=== PATIENT | female | born 1995 | race Caucasian/White ===

== ENCOUNTER 2021-12-20 08:39 | Inpatient (IN) | payer BC ==
[2021-12-21] MEDS ORDERED: Promethazine HCl 25 MG/ML VIAL IM PRN (04:49)
[2021-12-21] MEDS ORDERED: Acetaminophen 500 MG TAB PO PRN (04:49)
[2021-12-21] MEDS ORDERED: HYDROcodone/Acetaminophen 5/325 mg Tablet PO PRN ×2 (04:49)
[2021-12-21] MEDS ORDERED: Ibuprofen 800 MG TAB PO PRN (04:49)
[2021-12-21] MEDS ORDERED: Methylergonovine 0.2 MG/ML VIAL IM PRN (04:49)
[2021-12-21] MEDS ORDERED: Lidocaine 1% (PF) 30 ML VIAL SC PRN (04:49)
[2021-12-21] MEDS ORDERED: Misoprostol 200 MCG TAB PR PRN (04:49)
[2021-12-21] MEDS ORDERED: Ondansetron PF 4 MG/2 ML Vial IVP PRN (04:49)
[2021-12-21] MEDS ORDERED: Diphenoxylate HCl/Atropine Tablet PO PRN (04:49)
[2021-12-21] MEDS ORDERED: hydrALAZINE 20 MG/ML VIAL SLOW IVP PRN (04:49)
[2021-12-21 04:50] VITALS: BMI 39.0
[2021-12-21] MEDS ORDERED: Misoprostol 100 MCG TAB ONE (05:09)
[2021-12-21] MEDS ORDERED: Lactated Ringer's 1,000 ML IV SCH (05:15)
[2021-12-21] MEDS ORDERED: NS w/ Oxytocin 30 units 500 ML IV SCH ×2 (05:15)
[2021-12-21] MEDS: Misoprostol 100 MCG TAB VAG SCH ×3 (05:17→12:33)
[2021-12-21 05:33] LABS: Hemoglobin 10.3 g/dL (12.0-15.5); Mean Corpuscular HGB CONC 33.4 g/dL (32.0-36.0); Mean Corpuscular Hemoglobin 29.7 pg (27.0-33.0); Mean Corpuscular Volume 88.8 fl (81.6-98.3); Mean Platelet Volume 9.2 fl (7.4-10.4); Platelet Count 280 10x3/uL (150-450); RBC Distribution Width 14.6 % (11.5-14.5); Red Blood Cell (RBC) Count 3.47 10x6/uL (3.90-5.03); White Blood Cell (WBC) Count 11.8 10x3/uL (3.5-10.5)
[2021-12-21 06:10] LABS: Syphilis Antibody Nonreactive (Nonreactive); Syphilis Antibody Index 0.16 S/CO (<1.00 Non-Reactive)
[2021-12-21 06:11] LABS: Hep B Surf Ag Non-Reactive S/CO (NonReactive)
[2021-12-21 06:23] LABS: HBSAg Index 0.21 S/CO (0-0.99)
[2021-12-22] MEDS ORDERED: Lidocaine 1% (PF) 30 ML VIAL ONE (18:50)
[2021-12-22] MEDS ORDERED: Methylergonovine 0.2 MG/ML VIAL ONE (19:29)
[2021-12-22] MEDS: Butorphanol Tartrate 1 MG/ML VIAL SLOW IVP PRN ×2 (19:36→19:37)
[2021-12-22] MEDS ORDERED: Benzocaine-Menthol 82.5 ML CAN TOP PRN (21:31)
[2021-12-22] MEDS ORDERED: hydrALAZINE 20 MG/ML VIAL SLOW IVP PRN (21:31)
[2021-12-22] MEDS ORDERED: Lanolin Ointment 7 GM TUBE TOP PRN (21:31)
[2021-12-22] MEDS ORDERED: Methylergonovine 0.2 MG/ML VIAL IM PRN (21:31)
[2021-12-22] MEDS ORDERED: Ondansetron PF 4 MG/2 ML Vial IVP PRN (21:31)
[2021-12-22] MEDS ORDERED: Bisacodyl 10 MG SUPP PR PRN (21:31)
[2021-12-22] MEDS ORDERED: Misoprostol 200 MCG TAB VAG PRN (21:31)
[2021-12-22] MEDS ORDERED: Milk Of Magnesia 30 ML UDCUP PO PRN (21:31)
[2021-12-22] MEDS ORDERED: HYDROcodone/Acetaminophen 5/325 mg Tablet PO PRN ×2 (21:31)
[2021-12-22] MEDS ORDERED: NS w/ Oxytocin 30 units 500 ML IV SCH (22:00)
[2021-12-22] MEDS: Misoprostol 100 MCG TAB VAG SCH ×4 (22:13→22:17)
[2021-12-22] MEDS: Ibuprofen 800 MG TAB PO SCH ×2 (22:57→23:00)
[2021-12-22] MEDS: Docusate 100 MG CAP PO SCH ×2 (22:57→23:00)
[2021-12-23 05:25] LABS: #Monocytes 1.8 10x3/uL (0.0-1.1); #Neutrophils 15.9 10x3/uL (1.5-8.4); %Basophils 0.2 % (0.0-2.0); %Eosinophils 0.1 % (0.0-6.0); %Lymphocytes 8.5 % (18.0-47.0); %Neutrophils 80.9 % (40.0-75.0); Hemoglobin 8.7 g/dL (12.0-15.5); Mean Corpuscular HGB CONC 33.3 g/dL (32.0-36.0); Mean Corpuscular Hemoglobin 29.8 pg (27.0-33.0); Mean Corpuscular Volume 89.4 fl (81.6-98.3); Mean Platelet Volume 9.6 fl (7.4-10.4); Platelet Count 290 10x3/uL (150-450); RBC Distribution Width 14.6 % (11.5-14.5); Red Blood Cell (RBC) Count 2.92 10x6/uL (3.90-5.03); White Blood Cell (WBC) Count 19.6 10x3/uL (3.5-10.5)
[2021-12-23] MEDS: Ibuprofen 800 MG TAB PO SCH ×3 (06:19→21:32)
[2021-12-23] MEDS: Ferrous Sulfate 325 MG TAB PO SCH ×2 (08:30→18:31)
[2021-12-23] MEDS: Docusate 100 MG CAP PO SCH ×2 (08:31→21:36)
[2021-12-23] MEDS: Ampicillin 2 GM in Sodium Chloride 0.9% 100 ML IVPB SCH ×2 (12:11→18:31)
[2021-12-24] MEDS: Ampicillin 2 GM in Sodium Chloride 0.9% 100 ML IVPB SCH ×3 (00:05→12:12)
[2021-12-24] MEDS: Ibuprofen 800 MG TAB PO SCH ×2 (05:02→13:59)
[2021-12-24 07:38] VITALS: BP 91/50; TEMP 97.8
[2021-12-24] MEDS: Ferrous Sulfate 325 MG TAB PO SCH (08:17)
[2021-12-24] MEDS: Docusate 100 MG CAP PO SCH (08:17)
== END 2021-12-24 16:00 | disposition home or self-care (01) | DRG 768 ==
LOC: CSHLD 12-21 03:53 → CSHPED 12-22 21:55 → CSHPP 12-23 20:46
PROVIDERS: ADMIT Obstetrics & Gynecology; ATTEND Obstetrics & Gynecology
PROC: 10D07Z6 Extraction of Products of Conception, Vacuum, Via Natural or Artificial Opening (ICD-10-PCS; principal; 2021-12-22)
PROC: 0DQR0ZZ Repair Anal Sphincter, Open Approach (ICD-10-PCS; 2021-12-22)
PROC: 3E0334Z Introduction of Serum, Toxoid and Vaccine into Peripheral Vein, Percutaneous Approach (ICD-10-PCS; 2021-12-22)
PROC: 10907ZC Drainage of Amniotic Fluid, Therapeutic from Products of Conception, Via Natural or Artificial Opening (ICD-10-PCS; 2021-12-22)
PROC: 10H07YZ Insertion of Other Device into Products of Conception, Via Natural or Artificial Opening (ICD-10-PCS; 2021-12-22)
PROC: 0W8NXZZ Division of Female Perineum, External Approach (ICD-10-PCS; 2021-12-22)
DX: O26.893 Other specified pregnancy related conditions, third trimester (principal); Z37.0 Single live birth; Z67.41 Type O blood, Rh negative; Z3A.40 40 weeks gestation of pregnancy; J45.909 Unspecified asthma, uncomplicated; O99.52 Diseases of the respiratory system complicating childbirth; O76 Abnormality in fetal heart rate and rhythm complicating labor and delivery; O70.20 Third degree perineal laceration during delivery, unspecified; O86.4 Pyrexia of unknown origin following delivery
CPT/HCPCS: 36415; 85025; 85027; 85461; 86780; 86850; 86900; 86901; 87340; 90384; 96372; J0290; J0595; J1580; J2210; J2590; J3490